=== PATIENT | female | born 1995 | race Two or more races ===

== ENCOUNTER 2017-04-13 16:43 | Emergency (ER) | payer MEDICAID ==
[2017-04-13 16:57] VITALS: RESP 16
--- NOTE | 2017-04-13 18:29 | EDPHY ---
H & P Stated Complaint: Recurrence of pilonodal cyst;surg appt in 2 weeks Time Seen by Provider: 04/13/17 18:07 HPI/ROS: Chief complaint: Pilonidal cyst History of present illness: This is a 21-year-old female who presents to the emergency department for a pilonidal cyst. Patient reports she has had multiple episodes. She has had to have them drained multiple times. She has never needed antibiotics to treat them. She states she is scheduled to see a surgeon on April 25 for further care. She has had recurrence of this over the last few days. She describes pain and pressure. Denies associated signs or symptoms including no fevers, no difficulty with bowel movements, no urinary symptoms. - Personal History LMP (Females 10-55): 22-28 Days Ago Current Tetanus Diphtheria and Acellular Pertussis (TDAP): Yes Tetanus Vaccine Date: student - Medical/Surgical History Hx Asthma: No Hx Chronic Respiratory Disease: No Hx Diabetes: No Hx Cardiac Disease: No Hx Renal Disease: No Hx Cirrhosis: No Hx Alcoholism: No Hx HIV/AIDS: No Hx Splenectomy or Spleen Trauma: No Other PMH: Pilonodal cyst - Social History Smoking Status: Never smoked - Physical Exam Exam: General Appearance: Alert and no distress. Eyes: Pupils equal and round no injection. Respiratory: Chest is non tender, lungs are clear to auscultation. Cardiac: regular rate and rhythm Gastrointestinal: Abdomen is soft and non tender, no masses, bowel sounds normal. Musculoskeletal: Neck is supple and non tender. Extremities have full range of motion and are non tender. Skin: Patient has edema to the superior gluteal cleft on the left side consistent with pilonidal cyst/abscess Constitutional: Initial Vital Signs Temperature (C) 37.1 C 04/13/17 16:55 Heart Rate 63 04/13/17 16:55 Respiratory Rate 16 04/13/17 16:55 Blood Pressure 118/55 L 04/13/17 16:55 O2 Sat (%) 97 04/13/17 16:55 O2 Delivery Mode Room Air Allergies/Adverse Reactions: No Known Allergies Allergy (Verified 04/13/17 16:54) Home Medications: Medication Instructions Recorded NK [No Known Home Meds] 04/13/17 Medical Decision Making Procedures: Procedure: Abscess drainage. The patient's pilonidal cyst/abscess was located on the left side of the superior gluteal cleft. I obtained verbal consent from the patient to drain the abscess who was informed about the possibility of bleeding and pain. The abscess was incised with a scalpel and a large amount of purulent drainage was expressed. I irrigated the wound and placed some packing. The patient tolerated the procedure well. The procedure was performed by myself. ED Course/Re-evaluation: Patient seen under the supervision of my secondary supervising physician Dr. Billy Ellis. Patient presents to the emergency department concerned she has had a recurrence of a pilonidal cyst. History and physical exam is consistent with this. It is incised and drained and packed. No cellulitic changes are noted. I do not believe antibiotics are warranted at this time. Patient is discharged home. Home care is discussed. She is asked to follow up with her surgeon as planned for further care. Return precautions are given. Patient voiced understanding and agreement with plan. Differential Diagnosis: Included but not limited to abscess, cellulitis, unlikely necrotizing fasciitis Departure - Departure Disposition: Home, Routine, Self-Care Clinical Impression: Pilonidal abscess Condition: Good Instructions: Pilonidal Cyst (ED) Additional Instructions: Follow-up with your surgeon as planned on the 25 of April Packing to be removed in 1-2 days, you can return here for removal Use ibuprofen 600 mg 3 times a day as needed for pain If symptoms worsen or new symptoms develop return to the emergency room for recheck Referrals: NONE *PRIMARY CARE P,. [Primary Care Provider] - As per Instructions Nicholas Arndt MD [Medical Doctor] - As per Instructions
[2017-04-13 18:42] VITALS: BP 121/82; PULSE 64; TEMP 98.4; O2SAT 95
== END 2017-04-13 18:42 | disposition home or self-care (01) ==
PROC: 0HB8XZZ Excision of Buttock Skin, External Approach (ICD-10-PCS; principal; 2017-04-13)
DX: L05.01 Pilonidal cyst with abscess (principal)

== ENCOUNTER 2017-04-15 19:29 | Emergency (ER) | payer MEDICAID ==
[2017-04-15 19:54] VITALS: RESP 16
--- NOTE | 2017-04-15 20:23 | EDPHY ---
H & P Stated Complaint: cyst recheck HPI/ROS: CHIEF COMPLAINT: Wound recheck HISTORY OF PRESENT ILLNESS: Patient presents for 48 hour wound check. She was here 2 days ago with a pilonidal cyst that was incised and drained. She says that she has had no pain since time of discharge. She is feeling quite well. She has kept the wound clean, dry and covered. She has been taking anti- inflammatories. She has had no bleeding or purulence. No fever chills. She was not prescribed any antibiotics. She has an appointment next week with the surgeon for definitive care. The no other associated complaints or modifying factors. Date of incision and drainage: April 13, 2017 REVIEW OF SYSTEMS: Ten systems reviewed and are negative unless otherwise noted in the HPI EXAMINATION General Appearance: Alert, no distress Skin: Warm and dry, no rash. There is a left buttock incision with iodoform in place. There is no purulence. There is no surrounding erythema. No fluctuance. No cellulitis. This is a very well-appearing wound. Extremities: Nontender, no pedal edema DIFFERENTIAL DIAGNOSES: Including but not limited to pilonidal cysts, abscess, sebaceous cysts, cellulitis MDM: 8:23 p.m. Pilonidal cyst at 48 hours status post incision and drainage. The wound is very well-appearing. There is no reaccumulation of fluctuance or purulence. I have repacked the wound with no complications. She will be discharged home with instructions to follow up here in 2 days for wound recheck for removal of the packing. Return sooner for any infection, bleeding or purulence. She is also to keep her appointment next week for general surgeon. She is comfortable with this plan and discharged home stable condition. Wound recheck: 48 hours ED Precautions: Worsening pain. Erythema, edema, cyanosis, pallor, paresthesia or anesthesia. SUPERVISION: This patient was independently evaluated without direct examination by the attending physician. Case was discussed with attending physician. Case discussed with Dr. Ellis Source: Patient, RN/, Old records Exam Limitations: No limitations - Personal History LMP (Females 10-55): Now Current Tetanus/Diphtheria Vaccine: Unsure Current Tetanus Diphtheria and Acellular Pertussis (TDAP): Unsure Tetanus Vaccine Date: [employer] student - Medical/Surgical History Hx Asthma: No Hx Chronic Respiratory Disease: No Hx Diabetes: No Hx Cardiac Disease: No Hx Renal Disease: No Hx Cirrhosis: No Hx Alcoholism: No Hx HIV/AIDS: No Hx Splenectomy or Spleen Trauma: No Other PMH: Pilonodal cyst - Social History Smoking Status: Never smoked Constitutional: Initial Vital Signs Temperature (C) 98.4 F 04/15/17 19:52 Heart Rate 59 L 04/15/17 19:52 Respiratory Rate 16 04/15/17 19:52 Blood Pressure 103/54 L 04/15/17 19:52 O2 Sat (%) 95 04/15/17 19:52 O2 Delivery Mode Room Air Allergies/Adverse Reactions: No Known Allergies Allergy (Verified 04/13/17 16:54) Home Medications: Medication Instructions Recorded NK [No Known Home Meds] 04/13/17 Departure - Departure Disposition: Home, Routine, Self-Care Clinical Impression: Pilonidal cyst without abscess Condition: Good Instructions: Pilonidal Cyst (ED) Additional Instructions: 1. Continue previously prescribed wound care 2. Return here in 48 hours for packing removal 3. Return sooner for any worsening symptoms as discussed as needed Referrals: NONE *PRIMARY CARE P,. [Primary Care Provider] - As per Instructions Physician,Emergency Dept, [Medical Doctor] - As per Instructions
[2017-04-15 20:32] VITALS: BP 104/62; PULSE 58; TEMP 98.2; O2SAT 96
== END 2017-04-15 20:36 | disposition home or self-care (01) ==
DX: Z48.01 Encounter for change or removal of surgical wound dressing (principal); L05.91 Pilonidal cyst without abscess
CPT/HCPCS: G0463